=== PATIENT | female | born 1960 | race Caucasian/White ===

== ENCOUNTER → 2019-04-16 | Outpatient (REF) | payer BC | LOC: M SFHCCLAY 14:54 | PROVIDERS: ATTEND Family Medicine | DX: Z53.9 Procedure and treatment not carried out, unspecified reason (principal) ==

== ENCOUNTER → 2019-04-18 | Outpatient (CLI) | payer BC ==
--- NOTE | 2019-04-18 10:56 | REP ---
ULTRASOUND SOFT TISSUES NECK: Real-time sonographic evaluation of the soft tissues of the neck performed. In the right neck soft tissues a dominant elongated lymph node demonstrates a linear central echogenic fatty hilum. It measures 3.4 x 0.6 x 1.4 cm. There is an adjacent smaller lymph node 1.4 x 0.4 x 1.1 cm. A submandibular lymph node measures 8.0 x 4.0 x 9.0 mm. In the left neck soft tissues nonenlarged lymph nodes are seen measuring 1.6 x 0.4 x 1.0 cm and 7.0 x 5.0 x 6.0 mm. A submandibular lymph node is not significantly enlarged 1.0 x 0.5 x 0.9 cm. There is a 2 mm sebaceous cyst superficial to the right submandibular gland. IMPRESSION: Bilateral lymph nodes in the soft tissues of the neck as discussed in detail above. The largest lymph node is in the right neck soft tissues 3.4 x 0.6 x 1.4 cm. Short axis dimension is within normal range, but given its dimensions of 3.4 x 0.6 x 1.4 cm consideration should be made for either ultrasound guided biopsy or 6 month followup ultrasound. Electronically Signed by Luis Miguel Millard MD 04/21/2019 09:09 A
== END ==
LOC: M RAD 07:45
PROVIDERS: ATTEND Family Medicine
DX: R59.9 Enlarged lymph nodes, unspecified (principal)

== ENCOUNTER → 2019-07-09 | Outpatient (CLI) | payer BC ==
--- NOTE | 2019-07-09 14:52 | REPMRS ---
Patient History The patient states she had a clinical breast exam in 2019. Patient is postmenopausal and is nulliparous. Family history of unknown cancer in mother, breast cancer in maternal aunt. Priors are over 10 years ago, no longer available Digital Woman Screen Mammo: July 09, 2019 - Exam #: [id number] Bilateral CC and MLO view(s) were taken. Technologist: Deanna Santacruz, Technologist No prior studies available for comparison. FINDINGS: There are scattered fibroglandular densities. There is a spiculated 15 mm mass in the anterior third of the right breast inferior and lateral to the plane of the nipple which merits further evaluation. There is no other evidence of dominant mass, architectural distortion, or grouped microcalcification typical of malignancy. 3-D tomosynthesis shows no additional findings. Assessment: BI-RADS/ACR category 0 mammogram, Incomplete: Need additional imaging evaluation and/or prior mammograms for comparison. Recommendation Ultrasound and special view mammogram of the right breast. This patient's Lifetime Breast Cancer RIsk is estimated at 12.0 %. This mammogram was interpreted with the aid of an FDA-approved computer-aided dectection system. Electronically Signed By: Samuel Ma MD 07/09/19 [id number]
== END ==
LOC: M WHC 13:06
PROVIDERS: ATTEND Family Medicine
DX: Z12.39 Encounter for other screening for malignant neoplasm of breast (principal); R92.8 Other abnormal and inconclusive findings on diagnostic imaging of breast; N63.13 Unspecified lump in the right breast, lower outer quadrant; Z78.0 Asymptomatic menopausal state; Z80.3 Family history of malignant neoplasm of breast

== ENCOUNTER → 2019-07-18 | Outpatient (CLI) | payer BC ==
--- NOTE | 2019-07-18 15:03 | REP ---
Digital diagnostic unilateral right breast mammography with CAD and focused right breast sonography: History: Screening mammography July 09, 2019 was BIRADS category 0 because of a spiculated subareolar density. Diagnostic imaging was recommended. Mammographic findings: Magnified focal spot compression craniocaudal, mediolateral, and mediolateral oblique views confirm the presence of a spiculated subareolar 14 mm moderately dense nodule in the right breast at approximately 6 o'clock position. No other mammographic abnormality. Sonographic findings: Focused right breast sonography demonstrates a 11 x 6 x 8 mm irregularly shaped somewhat spiculated hypoechoic lesion 1 cm from the nipple at approximately the 8 o'clock position in the right breast. This felt to account for the mammographic opacity. It has a taller than wide configuration. No other sonographic finding. Impression: BIRADS category 5 highly suspicious right breast imaging. Ultrasound-guided needle biopsy recommended with marker clip placement and post clip placement mammography. Spiculated nodule right breast at 8 o'clock position by ultrasound. BIRADS 5: BI-RADS/ACR category 5 mammogram. Highly Suggestive of Malignancy - appropriate action should be taken. This mammogram was interpreted with the aid of an FDA-approved computer-aided detection system. The patient letter being requested is m# 4 This patient's estimated Tyrer-Cuzick lifetime risk assessment for the breast cancer is 12.0 %.
== END ==
LOC: M WHC 13:41
PROVIDERS: ATTEND Family Medicine
DX: Z12.31 Encounter for screening mammogram for malignant neoplasm of breast (principal)

== ENCOUNTER → 2019-07-25 | Outpatient (CLI) | payer BC | LOC: M PLALAB 13:38 | PROVIDERS: ATTEND Surgery | DX: Z13.79 Encounter for other screening for genetic and chromosomal anomalies (principal) ==

== ENCOUNTER → 2019-07-29 | Outpatient (CLI) | payer BC ==
[~2019-07-29] MED LIST: LIDOCAINE 1% MDV 20ML VIAL As Ordered ONE; SODIUM BICARBONATE 8.4% INJ 50MEQ 50 ML VIAL As Ordered ONE
[2019-07-29 11:06] VITALS: BP 140/79
--- NOTE | 2019-07-29 13:52 | REP ---
Sonographic guidance: History: Right breast mass. Findings: Sonographic guidance is provided to Dr. Winkler who performed ultrasound-guided needle biopsy procedure right breast. Electronically Signed by Mingo Ma MD 07/29/2019 06:00 P
--- NOTE | 2019-07-29 17:48 | ROOPDOC ---
[facility] Report Of Operation Report of Operation DATE OF PROCEDURE: 07/29/19 PREPROCEDURE DIAGNOSES: Right breast mass POSTPROCEDURE DIAGNOSES: Right breast mass PROCEDURE: Ultrasound-guided right breast mass biopsy with clip placement SURGEON: Sophie Alvarez HANGAR ATTENDANT: ANESTHESIA: Local ESTIMATED BLOOD LOSS: Approximately 1 mL. COMPLICATIONS: none REMARKS: Clip is seen in the mammographically detected mass DESCRIPTION OF PROCEDURE: Lidocaine 1% LOT [id number] Expiration 04/2022 Sodium Bicarbonate 8.4% LOT 03-018-EV Expiration 07/2020 Hydromark clip LOT [id number] Expiration 03/2022 Bx device: BARD [id number] x10 cm LOT HUDY [id number] Expiration 03/2022 Informed consent was obtained. The most common risk and possible complications including bleeding, hematoma, bruising, infection, injury to surrounding structures were explained to the patient and she expressed understanding. Patient was taken to the procedure room and placed on the bed in the supine p osition with the right upper extremity placed above the head. Appropriate time out was done stating patients name, date of , and the procedure to be performed. The right breast was prepped and draped in the usual fashion. The ultrasound was used to confirm the location of the lesion in the right breast at 8:00 in retroareolar region. Plain Lidocaine 1% and 8.4% sodium bicarbonate 10:1 mix was used to numb the skin, the biopsy site and tissues along the anticipated biopsy tract. Small skin incision was made with blade number 11. BARD Marquee 14G cannula with introducer ([id number]) was inserted through the incision and advanced under the ultrasound guidance to position immediately adjacent to the lesion. Next, the introducer was removed and BARD Marquee 14G biopsy device was places in the cannula. Pre-biopsy imaging, and post-biopsy imaging were captured. Five good core biopsies were taken at various levels of the lesion. Specimen was placed in formaldehyde, labeled with appropriate biopsy site and patients name, and sent to pathology for evaluation. Next, the biopsy device was withdrawn and a clip introducer was inserted into t he biopsy site via the cannula. The Hydromark clip was deployed under direct vision. Post-clip placement image was captured. Manual pressure over the biopsy cavity and tract was held after the clip introducer was withdrawn. No bleeding was noted upon removal of the pressure. Post-biopsy mammogram of the right breast was obtained and showed clip in expected position. Postprocedural dressing was placed. Patient tolerated procedure well. Discharge instructions were discussed with the patient and she expressed understanding. SOPHIE ALVAREZ DO Jul 29, 2019 17:48
--- NOTE | 2019-07-29 19:30 | REP ---
Digital diagnostic unilateral right breast mammography with CAD: Two views. History: Marker clip placement views. The patient status post ultrasound-guided needle biopsy procedure right breast. Findings: Comparison mammography is from July 18, 2019. Today's true mediolateral and CC views of the right breast demonstrate the needle biopsy marker clip within the spiculated density in the retroareolar region of the right breast in good position. Impression: Needle biopsy marker clip in good position. This mammogram was interpreted with the aid of an FDA-approved computer-aided detection system. Electronically Signed by Mingo Ma MD 07/30/2019 07:25 A
== END ==
LOC: M IRPRO 09:46
PROVIDERS: ATTEND Surgery
DX: R92.8 Other abnormal and inconclusive findings on diagnostic imaging of breast (principal); N63.10 Unspecified lump in the right breast, unspecified quadrant

== ENCOUNTER → 2019-08-01 | Outpatient (CLI) | payer BC ==
[~2019-08-01] MED LIST changes: -LIDOCAINE 1% MDV 20ML VIAL As Ordered ONE; +PROHANCE 279.3MG/ML 15ML VIAL (A9576) As Ordered ONE; +PROHANCE 279.3MG/ML 5ML VIAL (A9576) As Ordered ONE; -SODIUM BICARBONATE 8.4% INJ 50MEQ 50 ML VIAL As Ordered ONE
--- NOTE | 2019-08-01 19:16 | REP ---
Bilateral breast MRI study without and with IV gadolinium: History: Right breast malignancy. Comparison mammography July 09, 2019 showed a spiculated nodule in the right breast anterior third. The patient is status post ultrasound-guided breast biopsy July 29, 2019. Post biopsy marker clip views mammographically obtained July 29, 2019. Technique: Three Mireya MRI imaging was performed with a dedicated breast coil. Axial, coronal, and sagittal T1 and T2-weighted scans were obtained with and without fat saturation in the usual fashion. The study includes dynamically acquired post gadolinium enhanced imaging subtraction imaging. Maximal intensity projection and multiplanar re-formation imaging is included as well. The study was interpreted with the aid of [employer], an FDA approved computer-aided detection (CAD) software program, on a dedicated breast MRI work station. The gadolinium enhancement dose is 17 mL of intravenous ProHance. Findings: The recently placed HydroMark clip marker device is seen within the spiculated lesion in the anterior third of the right breast as noted on post biopsy mammographic views. There is some edematous change in the periareolar skin and in the stroma around the biopsy site on the right consistent with post biopsy edema. There is no evidence of axillary lymphadenopathy on either side. No significant breast cystic change is seen. Mild fibroglandular elements are present bilaterally. There is a mild pattern of background parenchymal enhancement. Fairly prominent veins are noted in both breasts. The spiculated enhancing lesion at the site of the biopsy-proven carcinoma demonstrates enhancement and washout kinetics. It measures 12 mm in greatest diameter. There is a second spiculated suspicious lesion in the right breast posteriorly. This is in the 8 o'clock position. It measures 11 mm in diameter and demonstrates brisk enhancement and washout kinetics. It is considered suspicious on breast MRI study. In retrospect in an area of overlapping vessels, there is a 13 mm spiculated density visible on post biopsy mammography from July 29, 2019 in this location. This is felt to correspond with the MR findings. No abnormalities noted in the left breast on pre or postcontrast images. Impression: 1. BIRADS category 6 known right breast malignancy. The biopsy-proven carcinoma is seen in the anterior third of the right breast inferior and lateral quadrant. 2. There is a second suspicious focus in the right breast posterior third inferolateral quadrant 11 mm in diameter. This is visible in retrospect on post clip marker mammography and may be sampled with stereotactic technique. Alternatively, a targeted second look ultrasound may be able to identify this lesion for histologic sampling if desired. Electronically Signed by Mingo Ma MD 08/01/2019 07:58 P
== END ==
LOC: M RAD 14:40
PROVIDERS: ATTEND Surgery
DX: R92.8 Other abnormal and inconclusive findings on diagnostic imaging of breast (principal); C50.511 Malignant neoplasm of lower-outer quadrant of right female breast
CPT/HCPCS: A9576; C8908

== ENCOUNTER → 2019-08-08 | Outpatient (CLI) | payer BC ==
[~2019-08-08] MED LIST changes: +ADDE30CA3 PO; +CLON0.5T2 PO; +CYMB60CA3 PO; +FOLI1TAB11 PO; +METH2.5T48 PO; +MOBI4TAB PO; +OMEP10CASR PO; -PROHANCE 279.3MG/ML 15ML VIAL (A9576) As Ordered ONE; -PROHANCE 279.3MG/ML 5ML VIAL (A9576) As Ordered ONE; +REST0.05 OP; +VITA200028 PO
--- NOTE | 2019-08-08 11:51 | REP ---
FOCUSED RIGHT BREAST SONOGRAPHY: HISTORY: Second suspicious abnormalities seen in the right breast on post biopsy MRI study August 01, 2019. The patient has a biopsy proven malignancy in the anterior aspect of the right breast and is status post ultrasound-guided needle biopsy for this. Comparison MRI study August 01, 2019. Comparison postbiopsy mammography July 29, 2019. Comparison sonography July 28 and July 18, 2019. MAMMOGRAPHIC FINDINGS: In the 8-o'clock position of the right breast, the irregular anechoic to hypoechoic mass lesion containing the needle biopsy marker clip is seen consistent with the known biopsy-proven malignancy. At approximately 9-o'clock position more posterolaterally in the right breast, there is also a irregular somewhat spiculated appearing shadowing hypoechoic breast lesion measuring 9 x 9 x 8 mm located 7.7 cm from the nipple. This is felt to correspond with the second target seen on breast MRI scanning and is suspicious sonographically. IMPRESSION: BIRADS category 6 known right breast malignancy. The second target identified on breast MRI scanning is seen sonographically at the 9-o'clock position of the right breast more laterally. Histologic sampling under ultrasound guidance is feasible and is recommended. Electronically Signed by Mingo Ma MD 08/08/2019 03:50 P
== END ==
LOC: M RAD 10:37
PROVIDERS: ATTEND Surgery
DX: C50.911 Malignant neoplasm of unspecified site of right female breast (principal); R92.8 Other abnormal and inconclusive findings on diagnostic imaging of breast

== ENCOUNTER → 2019-08-12 | Outpatient (CLI) | payer BC ==
[2019-08-12 14:30] VITALS: BP 134/84
--- NOTE | 2019-08-12 17:24 | REP ---
POST BIOPSY MAMMOGRAM RIGHT BREAST: Following ultrasound guided biopsy of a nodule at 9-o'clock posteriorly in the right breast, ML and CC views of the right breast are performed. A metallic clip is seen at the new biopsy site posteriorly at 9-o'clock. The previously biopsied retroareolar spiculated nodule is visualized once again with a metallic clip again seen within it.
--- NOTE | 2019-08-12 20:46 | ROOPDOC ---
[facility] Report Of Operation Report of Operation DATE OF PROCEDURE: 08/12/19 PREPROCEDURE DIAGNOSES: Right breast cancer and right breast mass POSTPROCEDURE DIAGNOSES: Right breast cancer in the right breast mass PROCEDURE: Ultrasound-guided right breast mass biopsy with clip placement.. SURGEON: Sophie Alvarez ENTRY LEVEL MANAGER: ANESTHESIA: Local. ESTIMATED BLOOD LOSS: Approximately 5 mL. COMPLICATIONS: None. REMARKS: Postbiopsy clip is visible on mammogram in appropriate location. DESCRIPTION OF PROCEDURE: Lidocaine 1% LOT [id number] Expiration 06/2020 Sodium Bicarbonate 8.4% LOT 03-432-[id number] Expiration 07/2020 Hydromark clip LOT [id number] Expiration 03/2022 shape 4 Bx device: BARD [id number] x10 cm LOT HUEN 1024 Expiration 04/2022 Informed consent was obtained. The most common risk and possible complications including bleeding, hematoma, bruising, infection, injury to surrounding structures were explained to the patient and she expressed understanding. Patient was taken to the procedure room and placed on the bed in the supine position with the right upper extremity placed above the head. Appropriate time out was done stating patients name, date of , and the procedure to be performed. The right breast was prepped and draped in the usual fashion. The ultrasound was used to confirm the location of the lesion in the right breast at 9:00 8 centimeters from the nipple. Plain Lidocaine 1% and 8.4% sodium bicarbonate 10:1 mix was used to numb the skin, the biopsy site and tissues along the anticipated biopsy tract. Small skin incision was made with blade number 11. BARD Marquee 14G cannula with introducer ([id number]) was inserted through the incision and advanced under the ultrasound guidance to position immediately adjacent to the lesion. Next, the introducer was removed and BARD Marquee 14G biopsy device was places in the cannula. Pre-biopsy imaging, and post-biopsy imaging were captured. Five good core biopsies were taken at various levels of the lesion. Specimen was placed in formaldehyde, labeled with appropriate biopsy site and patients name, and sent to pathology for evaluation. Next, the biopsy device was withdrawn and a clip introducer was inserted into the biopsy site via the cannula. The Hydromark clip was deployed under direct vision. Post-clip placement image was captured. Manual pressure over the biopsy cavity and tract was held after the clip introducer was withdrawn. No bleeding was noted upon removal of the pressure. Post-biopsy mammogram of the right breast was obtained and showed clip in expected position. Postprocedural dressing was placed. Patient tolerated procedure well. Discharge instructions were discussed with the patient and she expressed understanding. SOPHIE ALVAREZ DO Aug 12, 2019 20:46
--- NOTE | 2019-08-13 08:29 | REP ---
FOCUSED RIGHT BREAST SONOGRAPHY: HISTORY: Ultrasound-guided needle biopsy. FINDINGS: Sonographic guidance is provided to Dr. Winkler who performed ultrasound-guided right breast needle biopsy procedure and marker clip placement. Electronically Signed by Mingo Ma MD 08/13/2019 09:20 A
== END ==
LOC: M WHCPRO 12:36
PROVIDERS: ATTEND Surgery
DX: N63.12 Unspecified lump in the right breast, upper inner quadrant (principal)

== ENCOUNTER → 2019-08-19 | Outpatient (REF) | payer BC ==
[2019-08-19 15:58] LABS: HEMATOCRIT 40.9 % (36.0-47.0); HEMOGLOBIN 13.3 g/dl (12.0-15.5); MEAN CORPUSCULAR HEMOGLOBIN 30.6 pg (27.0-33.0); MEAN CORPUSCULAR HGB CONC 32.5 g/dl (32.0-36.5); PLATELET COUNT, AUTOMATED 283 10^3/uL (150-450); RED BLOOD COUNT 4.35 10^6/uL (4.00-5.40); WHITE BLOOD COUNT 6.3 10^3/uL (4.0-10.0)
[2019-08-19 16:02] LABS: BLOOD UREA NITROGEN 18 MG/DL (7-18); CALCIUM LEVEL 9.2 MG/DL (8.8-10.2); CARBON DIOXIDE LEVEL 31 MEQ/L (21-32); CHLORIDE LEVEL 107 MEQ/L (98-107); CREATININE FOR GFR 0.76 MG/DL (0.55-1.30); GLOMERULAR FILTRATION RATE > 60.0 (>45); GLUCOSE, FASTING 83 MG/DL (70-100); POTASSIUM SERUM 4.8 MEQ/L (3.5-5.1); SODIUM LEVEL 141 MEQ/L (136-145)
== END ==
LOC: M SFHCCLAY 10:40
PROVIDERS: ATTEND Family Medicine
DX: Z01.818 Encounter for other preprocedural examination (principal); C50.511 Malignant neoplasm of lower-outer quadrant of right female breast; M06.9 Rheumatoid arthritis, unspecified

== ENCOUNTER → 2019-08-19 | Outpatient (CLI) | payer BC ==
--- NOTE | 2019-08-19 11:49 | REP ---
Clinical: Preoperative assessment. History of breast cancer . Comparison: None . Technique: PA and lateral. Findings: The mediastinum and cardiac silhouette are normal. The lung olivera are clear and without acute consolidation, effusion, or pneumothorax. The skeletal structures demonstrate age-related changes. Impression: 1. No acute cardiopulmonary process. Electronically Signed by López Brown MD 08/19/2019 11:40 A
== END ==
LOC: M CLY 11:24
PROVIDERS: ATTEND Family Medicine
DX: Z01.818 Encounter for other preprocedural examination (principal); C50.511 Malignant neoplasm of lower-outer quadrant of right female breast

== ENCOUNTER 2019-08-26 06:57 | Inpatient (IN) | payer BC ==
[~2019-08-26] VITALS: Ht 205.7 cm; Wt 95.3 kg
[~2019-08-26 06:57] MED LIST changes: +HEPARIN SOD (PORCINE) 5000 UNITS/ML VIAL (J1644 PER 1000UNITS) SQ ONE; +NS 1,000 ML IV ONE; -REST0.05 OP; +REST0.05 OU; +VITAD1000T PO; +ceFAZolin SOD 2 GM in IV 1 EA IV ONE
[2019-08-26] MEDS ORDERED: LIDO2.5C15 (07:40)
[2019-08-26] MEDS ORDERED: LIDOCAINE 2% INJ 100 MG/5 ML SDV (FOR ANES.) As Ordered ONE ×3 (08:37→12:35)
[2019-08-26] MEDS ORDERED: ROCURONIUM BROMIDE 50 MG/5 ML VIAL As Ordered ONE (08:37)
[2019-08-26] MEDS ORDERED: propofoL 200 MG/20 ML VIAL As Ordered ONE ×2 (08:37→12:35)
[2019-08-26] MEDS ORDERED: MIDAZOLAM INJ 2 MG/2 ML VIAL (J2250) As Ordered ONE (08:38)
[2019-08-26] MEDS ORDERED: fentaNYL 100 MCG/2 ML INJECTION (J3010) As Ordered ONE ×2 (08:38→11:06)
[2019-08-26] MEDS ORDERED: dexameTHASONE 4 MG/ML 1ML VIAL (J1100) As Ordered ONE (08:39)
[2019-08-26] MEDS ORDERED: ONDANSETRON 4MG/2ML VIAL (J2405) As Ordered ONE (08:39)
[2019-08-26] MEDS ORDERED: BUPIVACAINE LIPOSOME/PF 1.3% 20ML VIAL (13.3MG/ML)(EXPAREL)(C9290 PER1MG) As Ordered ONE (09:19)
[2019-08-26] MEDS ORDERED: KETOROLAC 60 MG/2 ML VIAL (J1885) As Ordered ONE (11:10)
[2019-08-26] MEDS ORDERED: ACETAMINOPHEN 1000MG 100ML IV BTL (OFIRMEV) (J0131 PER 10MG) As Ordered ONE (11:11)
--- NOTE | 2019-08-26 11:53 | REP ---
Right Breast Lymphoscintigraphy The procedure was performed by JONATHAN Payne, under the direct supervision of Dr. Millard. The risks and benefits of the procedure were explained to the patient and informed consent was obtained both verbally and written. Directly prior to the start of the procedure, a formal timeout was completed in the procedure room. Using topical anesthetic and sterile technique 1.039 mCi of technetium 99m filtered sulfur colloid was injected subdermally in eight fractionated periareolar injections. Images obtained 1 hour after injection show 2 right axillary foci. Impression: 1. Two right axillary foci. Reviewed by JONATHAN Swartz 08/26/2019 10:37 A Electronically Signed by Luis Miguel Millard MD 08/26/2019 11:45 A
[2019-08-26] MEDS ORDERED: oxyCODONE 5MG TAB PO PRN (12:45)
[2019-08-26] MEDS ORDERED: ONDANSETRON 4MG/2ML VIAL (J2405) IV PRN ×2 (12:45→13:30)
[2019-08-26] MEDS ORDERED: fentaNYL 100 MCG/2 ML INJECTION (J3010) IV PRN (12:45)
[2019-08-26] MEDS ORDERED: HYDROMORPHONE HCL 0.5 MG/ 0.5 ML SYRINGE (J1170 PER 1) IV PRN (12:45)
[2019-08-26] MEDS ORDERED: LR 1,000 ML IV SCH (12:45)
[2019-08-26] MEDS ORDERED: MAALOX 30 ML SUSP *UDC PO PRN (13:15)
[2019-08-26] MEDS ORDERED: ACETAMINOPHEN TAB 650MG DOSE (2X325MG) PO PRN (13:15)
[2019-08-26] MEDS ORDERED: MOM 30ML SUSPENSION UDC PO PRN (13:15)
[2019-08-26] MEDS ORDERED: MORPHINE 4 MG/ML 1ML VIAL/SYRINGE (J2270) IV PRN (13:15)
[2019-08-26] MEDS: NS 1,000 ML IV SCH ×2 (13:30→19:50)
--- NOTE | 2019-08-26 13:46 | HPEPDOC ---
General Date of Admission Date of Service: Aug 26, 2019 Primary Care Physician: JOSE PETTIT DO Attending Physician: SOPHIE ALVAREZ DO Chief Complaint The patient is a 59-year-old female admitted with a reason for visit of Multifocal Right Breast Cancer. Source: Patient Exam Limitations: No limitations Timing/Duration: Other (not applicable) Severity: Other (not applicable) Associated Symptoms: Other (not applicable) History of Present Illness This is a 59 years old female with past medical history of rheumatoid arthritis, anxiety disorder, dry eye syndrome, Sjogren syndrome, polycystic ovarian syndrome. 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 Alvarez and had a mastectomy done with a placement of a drain on right side and we were asked to admit patient for continued inpatient care till patient is discharged home. On examination, she has comfortable in no distress. Only complaining of a pain at the surgical site, no shortness of breath, no chest pain, no nausea, vomiting, etc. Home Medications Scheduled Cholecalciferol (Vitamin D3) (Vitamin D3) 1,000 Unit Tablet, 1,000 UNITS PO DAILY, (Reported) Cyclosporine (Restasis) 0.05% Droperette, 1 DROP OU BID, (Reported) Dextroamphetamine/Amphetamine (Adderall Xr 30 mg Capsule) 30 Mg Cap.er.24h, 1 CAP PO BIDP, (Reported) Duloxetine Hcl (Cymbalta) 60 Mg Capsule.dr, 60 MG PO DAILY, (Reported) Folic Acid (Folic Acid) 1 Mg Tablet, 1 TAB PO DAILY, (Reported) Meloxicam (Mobic) 7.5 Mg Tablet, 1 TAB PO DAILY, (Reported) Methotrexate Sodium (Methotrexate) 2.5 Mg Tablet, 6 TAB PO Q7D, (Reported) Omeprazole (Omeprazole) 10 Mg Capsule.dr, 20 MG PO QHS, (Reported) Scheduled PRN Clonazepam (Clonazepam) 0.5 Mg Tablet, 0.5 MG PO TIDP PRN for anxiety, (Reported) Miscellaneous Medications Lidocaine/Prilocaine (Lidocaine-Prilocaine Cream) 2.5%/2.5% Cream..g., (Reported) Allergies Coded Allergies: No Known Allergies (Unverified , 08/25/19) Past Medical History Medical History Rheumatoid arthritis, anxiety, dry, some Sjogren syndrome, polycystic ovarian disease syndrome Surgical History . Total ankle replacement, cholecystectomy, ovarian wedge resection, right breast biopsy Family History Mother had immune, hepatitis. Bladder cancer and brother had hypertension. Father also had hypertension Social History * Smoker: former Smoker Alcohol: Denies Drugs: denies A-FIB/CHADSVASC A-FIB History Current/History of A-Fib/PAF?: No Review of Systems Constitutional: Denies: Chills, Fever, Malaise, Night Sweats, Weakness, Fatigue, Weight Loss, Lethargy, Other Eyes: Denies: Pain, Vision change, Conjunctivae inflammation, Eyelid inflamm ation, Redness, Other ENT: Denies: Head Aches, Ear Pain, Dysphagia, Sinus Congestion, Post Nasal Drip, Sore Throat, Epistaxis, Other Symptoms Skin: Denies: Rash, Lesions, Jaundice, Bruising, Itching, Dry, Breakdown, Nail Changes, Other Pulmonary: Denies: Dyspnea, Cough, Pleuritic Chest Pain, Other Symptoms Cardiovascular: Denies: Chest Pain, Palpitations, Orthopnea, Paroxysmal Noc. Dyspnea, Edema, Lt Headedness, Other Symptoms Gastrointestinal: Denies: Nausea, Vomiting, Abdominal Pain, Diarrhea, Constipation, Melena, Hematochezia, Other Symptoms Genitourinary: Denies: Dysuria, Frequency, Incontinence, Hematuria, Retention, Other Symptoms Hematologic: Denies: Bruising, Bleeding Excessively, Petecchia, Purpura, Enlarged Lymph Nodes, Other Hematologic Endocrine: Denies: Polydipsia, Polyphagia, Polyuria, Heat Intolerance, Cold Intolerance, Other Endocrine Sx Musculoskeletal: Reports: Other Symptoms (The surgical site) Neurological: Denies: Weakness, Numbness, Incoordination, Change in speech, Confusion, Seizures, Other Symptoms Psych: Denies: Mood Normal, Anxiety, Depression, Memory Issues, Thoughts of Self Harm, Anger, Thoughts of Harming Other, Other Psych Physical Examination General Exam: Positive: Alert, Cooperative Eye Exam: Positive: PERRLA, Conjunctiva & lids normal ENT Exam: Positive: Atraumatic, Mucous membr. moist/pink Neck Exam: Positive: Supple Chest Exam: Positive: Clear to auscultation Heart Exam: Positive: Rate Normal, Normal S1, Normal S2 Abdomen Exam: Positive: Normal bowel sounds, Soft Extremity Exam: Positive: Normal pulses Skin Exam: Positive: Other skin issue (dressing on the rise. Right breast with a drain in place) Neuro Exam: Positive: Strength at 5/5 X4 ext, Cranial Nerves 3-12 NL Psych Exam: Positive: Mood NL, Oriented x 3 Vital Signs Vital Signs Date Time Temp Pulse Resp B/P (MAP) Pulse Ox O2 Delivery O2 Flow Rate FiO2 08/26/19 13:11 16 08/26/19 13:00 97.5 84 117/61 (79) 95 Room Air 08/26/19 12:45 5 Problems (1) Status post mastectomy Status: Acute Problem Text: 59 years old female with past medical history of ductal carcinoma, grade 2 right breast status post mastectomy by Dr. Alvarez today Admit patient to MedSurg floor Normal saline 800 mL per hour Cefazolin 2 g IV every 8 hours 2 more doses Pain management with morphine sulfate and oxycodone as per orders DVT prophylaxis with heparin Activity as tolerated Diet to regular Further recommendations as per plastic surgery Continue home meds (2) PCOS (polycystic ovarian syndrome) Status: Chronic Problem Text: Continue home meds (3) Sjogrens syndrome Status: Chronic Problem Text: Continue home meds (4) Rheumatoid arthritis Status: Chronic Problem Text: Continue home meds Plan / VTE VTE Prophylaxis Ordered?: Yes NORBERTO QUINTANILLA MD Aug 26, 2019 13:46
[2019-08-26 14:00] VITALS: BP 130/81
[2019-08-26 14:26] VITALS: BP 127/81
[2019-08-26 15:30] VITALS: BP 126/80
[2019-08-26 16:30] VITALS: BP 105/65
[2019-08-26 17:30] VITALS: BP 117/71
[2019-08-26] MEDS: ceFAZolin SOD 2 GM in IV 1 EA IV SCH (17:56)
[2019-08-26] MEDS: oxyCODONE 5MG TAB PO PRN (17:57)
[2019-08-26] MEDS ORDERED: clonazePAM 0.5 MG TAB PO PRN (18:15)
[2019-08-26] MEDS: HEPARIN SOD (PORCINE) 5000 UNITS/ML VIAL (J1644 PER 1000UNITS) SC SCH (19:48)
[2019-08-26] MEDS: DOCUSATE SODIUM 100 MG CAP PO SCH (19:48)
--- NOTE | 2019-08-26 21:01 | ROOPDOC ---
[facility] Report Of Operation Report of Operation DATE OF PROCEDURE: 08/26/19 PREPROCEDURE DIAGNOSES: Right multifocal breast cancer POSTPROCEDURE DIAGNOSES: Right multifocal breast cancer PROCEDURE: Right breast simple mastectomy without reconstruction and right sentinel lymph node biopsy. SURGEON: Jessica Winkler [employer] NURSE: Mary Harden ANESTHESIA: Anesthesia was general. ESTIMATED BLOOD LOSS: Approximately 25 mL. COMPLICATIONS: None REMARKS: 3 sentinel lymph nodes identified DESCRIPTION OF PROCEDURE: INDICATIONS: Ms. Porras is a 59 year old lady who was found to have right breast mass on her mammogram. Biopsy of right breast lesion was done and showed invasive ductal carcinoma, hormone positive, Her2 negative.. She had MRI of the breast was done and found second right breast mass which was also proven to be cancer but this time papillary carcinoma. We discussed surgical options and patient opted for simple mastectomy without reconstruction. I explained to the patient that because she has invasive breast cancer we also need to evaluate her lymph nodes with right breast sentinel lymph node biopsy. Risks and possible complications of surgical procedure including bleeding, infection and injury to surrounding structures were explained to the patient and she wished to proceed. Consent was signed. Subcutaneous heparin 5000 units was given to patient in the preop area. Lymphoscintigraphy was reviewed preoperatively and the tracer was found in the right axilla. DETAILS: Patient was taken to the operating room and placed supine on the operating room table. A sign in was called stating patients name, date of and the procedure to be done. Preoperative antibiotics were infused. Smooth induction of general anesthesia was done. Patients hands were extended on arm rests. Care was taken not to over extend patients arms. Weaver catheter was placed. Patients right breast and axilla were prepped and draped in the usual fashion. Neoprobe was used to rodrigue the site of maximal signal in the axilla. The right breasts tumor sites were marked on the skin using ultrasound guidance. Both biopsy clips were noted. Appropriate time out was done and patients name, date of , and the procedure to be done were confirmed. Procedure was started with right mastectomy. Thetransverse elliptical incision incorporating skin and nipple areolar complex was made with scalpel number 15. Subcutaneous flaps were developed using electrocautery dissection. Dissection was carried from inframammary fold to medial aspect of sternum, inferior aspect of clavicle and the axilla. Doctor Mills assistance was critical in allowing fast progression of the case and decreasing anesthesia time. Breast tissue was dissected from the muscle posteriorly and pectoralis fascia was taken with the specimen. The dissection was carried all the way to the [place] making sure that axilla is not entered prematurely. Breast specimen was marked for orientation with short stitch marking superior edge of mastectomy and long stitch marking latera edge of mastectomy. The specimen was weighted and weight of 831 grams was reported. The specimen was then placed in formaldehyde, and passed to pathology. Right mastectomy cavity was irrigated and hemostasis was achieved. Doctor Gene assistance was critical in achieving adequate hemostasis and progressing the case safely. Next, our attention was turned toward the axilla which was accessed from the mastectomy site. Clavipectoral fascia was opened over the site of maximum Neoprobe signal. Area of high signal was identified at the lateral border of the pectoralis major muscle. [place] lymph node #1 was identified and 10 second ex-vivo count [id number]. Second sentinel lymph node was identified and the 10 second ex-vivo count was [id number]. Third sentinel lymph node was identified and the 10 second ex-vivo [place] [id number]. Specimens were labeled appropriately and sent to pathology. Axilla was explored for presence of any additional lymph nodes and none were identified. 10 second count of the background was 36. Doctor Mills assistance with identification of sentinel lymph nodes was again critical to avoid injury to surrounding nerves. The axilla was irrigated and hemostasis was achieved. Next, clavipectoral fascia was closed with interrupted 3-0 Vicryl Stitches. At this point, 19 Amharic Antoine drain was placed into the mastectomy cavity through a separate stab incision and secured at the skin with stitches. Next, pectoral and serratus plane blocks on the right side were also done with Exparel by Dr. Harden. Deep dermal sutures were placed with 2-0 Vicryl to approximate mastectomy site edges. Dermis was closed with 3-0 Vicryl. Skin was closed with 4-0 Monocryl. Surgical glue was applied to the top of the incision. Surgical gauze was placed over the incision and the chest was wrapped with ANTOINE wrap. Final instruments and sponge count were correct. Patient emerged from general anesthesia without any problems. Patient tolerated procedure well and was taken to recovery unit in stable condition. JESSICA WINKLER DO Aug 26, 2019 21:01
[2019-08-26 22:00] VITALS: BP 104/65
[2019-08-27] MEDS: oxyCODONE 5MG TAB PO PRN ×3 (00:07→10:01)
[2019-08-27 02:00] VITALS: BP 110/86
[2019-08-27] MEDS: ceFAZolin SOD 2 GM in IV 1 EA IV SCH (03:05)
[2019-08-27 05:35] LABS: HEMOGLOBIN 11.4 g/dl (12.0-15.5); MEAN CORPUSCULAR HEMOGLOBIN 30.5 pg (27.0-33.0); MEAN CORPUSCULAR HGB CONC 32.6 g/dl (32.0-36.5); MEAN CORPUSCULAR VOLUME 93.6 fl (80.0-96.0); PLATELET COUNT, AUTOMATED 242 10^3/uL (150-450); RED BLOOD COUNT 3.74 10^6/uL (4.00-5.40); WHITE BLOOD COUNT 9.1 10^3/uL (4.0-10.0)
[2019-08-27 05:59] LABS: ALBUMIN 2.9 GM/DL (3.2-5.2); ALT/SGPT 30 U/L (12-78); BILIRUBIN,TOTAL 0.3 MG/DL (0.2-1.0); BLOOD UREA NITROGEN 11 MG/DL (7-18); CALCIUM LEVEL 8.4 MG/DL (8.8-10.2); CARBON DIOXIDE LEVEL 29 MEQ/L (21-32); CHLORIDE LEVEL 108 MEQ/L (98-107); CREATININE FOR GFR 0.78 MG/DL (0.55-1.30); GLOMERULAR FILTRATION RATE > 60.0 (>45); GLUCOSE, FASTING 89 MG/DL (70-100); MAGNESIUM LEVEL 2.2 MG/DL (1.8-2.4); POTASSIUM SERUM 3.7 MEQ/L (3.5-5.1); SODIUM LEVEL 142 MEQ/L (136-145); TOTAL PROTEIN 6.2 GM/DL (6.4-8.2)
[2019-08-27 06:00] VITALS: BP 119/81
[2019-08-27] MEDS ORDERED: ULTR50TA8 PO (06:59)
--- NOTE | 2019-08-27 08:09 | IPNPDOC ---
Subjective General Date Seen: Aug 27, 2019 (patient was seen with Dr Harden) Subject Chief Complaint/History The patient is a 59-year-old female admitted with a reason for visit of Multifocal Right Breast Cancer. She had right breast simple mastectomy and right sentinel lymph node biopsy done yesterday. She was admitted for recovery as 23 hour. She is doing well after surgery. She is tolerating food. She was able to void. She is using incentive spirometer. She is able to ambulate. Her pain is well-controlled. Patient was seen together with Dr. Harden. Current Medications Current Medications Current Medications Medications (Trade) Dose Ordered Sig/Kiesha Route PRN Reason Start Time Stop Time Status Last Admin Dose Admin Acetaminophen (Tylenol Tab) 650 mg Q4H PRN PO PAIN OR FEVER 08/26/19 13:15 Al Hydrox/Mg Hydrox/Simethicone (Mylanta) 30 ml DAILY PRN PO DYSPEPSIA 08/26/19 13:15 08/27/19 00:06 Cefazolin Sodium/ Dextrose 2 gm/IV Miscellaneous Supplies 50 ml @ 75 mls/hr Q8H IV 08/26/19 19:00 08/27/19 03:39 DC 08/27/19 03:05 Clonazepam (KlonoPIN) 0.5 mg TIDP PRN PO anxiety 08/26/19 18:15 Docusate Sodium (Colace) 100 mg BID PO 08/26/19 21:00 08/26/19 19:48 Duloxetine HCl (Cymbalta) 60 mg DAILY PO 08/27/19 09:00 Fentanyl Citrate (Sublimaze) 25 mcg Q5MP PRN IV PAIN LEVEL 5-10 08/26/19 12:45 08/26/19 13:45 DC Folic Acid (Folic Acid) 1 mg DAILY PO 08/27/19 09:00 Heparin Sodium (Porcine) (Heparin) 5,000 units Q12H SC 08/26/19 21:00 08/26/19 19:48 Hydromorphone HCl (Dilaudid) 0.2 mg Q5MP PRN IV PAIN LEVEL 4-7 08/26/19 12:45 08/26/19 13:45 DC Lactated Ringer's 1,000 ml @ 100 mls/hr Q10H IV 08/26/19 12:45 08/26/19 13:45 DC Magnesium Hydroxide (Milk Of Magnesia) 30 ml DAILY PRN PO CONSTIPATION 08/26/19 13:15 Morphine Sulfate (Morphine Sulfate Inj) 4 mg Q4HP PRN IV SEVERE PAIN (PS 8-10) 08/26/19 13:15 Ondansetron HCl (ZOFRAN INJection) 4 mg Q4HP PRN IV NAUSEA OR VOMITING 08/26/19 12:45 08/26/19 13:45 DC Ondansetron HCl (ZOFRAN INJection) 4 mg Q4HP PRN IV NAUSEA OR VOMITING 08/26/19 13:30 Oxycodone HCl (Roxicodone, Oxyir) 5 mg ASDIRECTED PRN PO PAIN LEVEL 1-4 08/26/19 12:45 08/26/19 13:45 DC 08/26/19 13:11 Oxycodone HCl (Roxicodone, Oxyir) 10 mg Q4HP PRN PO PAIN LEVEL 4-7 08/26/19 13:15 08/27/19 05:52 Sodium Chloride 1,000 ml @ 100 mls/hr Q10H IV 08/26/19 13:30 08/26/19 19:50 Vitamin D (Vitamin D) 1,000 units DAILY PO 08/27/19 09:00 Allergies Coded Allergies: No Known Allergies (Unverified , 08/25/19) Objective Physical Examination Examination GENERAL APPEARANCE: Patient is doing well. There is no distress. She is alert and oriented.. SKIN: Skin is warm. There are mild ecchymosis across her right chest. BREAST: Right mastectomy flap is viable. There is mild ecchymosis. There is no drainage from the incision site. Incision is well approximated. Thony wrap was replaced after examination. There is CARINE drain in place with small amount of serous sanguinous fluid. 130 cc in 24 h LUNGS: Patient is breathing comfortably on room air. HEART: There is no tachycardia. ABDOMEN: Abdomen soft. EXTREMITIES: Patient is spontaneously moving all 4 extremities. There is no edema. Vital Signs Vital Signs Date Time Temp Pulse Resp B/P (MAP) Pulse Ox O2 Delivery O2 Flow Rate FiO2 08/27/19 06:22 76 15 93 Room Air 08/27/19 06:00 97.8 119/81 (94) 08/26/19 12:45 5 I&Os I&O- Last 24 Hours up to 6 AM 4/1/20 06:00 Intake Total 5630 ml Output Total 1260 ml Balance 4370 ml Laboratory Data Labs 24H Laboratory Tests 2 08/27/19 05:19: Nucleated Red Blood Cells % (auto) 0.0, Anion Gap 5L, Glomerular Filtration Rate > 60.0, Calcium Level 8.4L, Magnesium Level 2.2, Total Bilirubin 0.3, Aspartate Amino Transf (AST/SGOT) 20, Alanine Aminotransferase (ALT/SGPT) 30, Alkaline Phosphatase 109, Total Protein 6.2L, Albumin 2.9L, Albumin/Globulin Ratio 0.88L CBC/BMP Laboratory Tests 08/27/19 05:19 Impression 59-year-old lady with multifocal right breast cancer, status post right simple mastectomy and right sentinel lymph node biopsy done on 08/26/2019. - Stable for discharge from surgical point - Discharge instructions already placed in the chart from surgical point of view - Patient does not need to continue antibiotics at discharge - Ultram prescription was already sensed to patient's pharmacy patient was encouraged to take it only if she needs to otherwise Tylenol was encouraged - Patient was instructed to remain in Thony wrap anterior she sees me in the office on August 31 - Drain teaching per nursing staff. Patient was instructed to record 24 hours totals - Case was discussed with nursing staff - I greatly appreciate medicine team input in management of this patient Plan / VTE VTE Prophylaxis Ordered?: Yes VTE Exclusion Pharmacological: Bleeding Risk SOPHIE ALVAREZ DO Aug 27, 2019 07:11
[2019-08-27] MEDS: HEPARIN SOD (PORCINE) 5000 UNITS/ML VIAL (J1644 PER 1000UNITS) SC SCH (08:27)
[2019-08-27] MEDS: DOCUSATE SODIUM 100 MG CAP PO SCH (08:29)
[2019-08-27] MEDS ORDERED: DULoxetine 30 MG CAP (CYMBALTA) PO SCH (09:00)
[2019-08-27] MEDS ORDERED: FOLIC ACID 1 MG TAB PO SCH (09:00)
[2019-08-27] MEDS ORDERED: VITAMIN D 1,000 INTERNATIONAL UNITS TABLET PO SCH (09:00)
--- NOTE | 2019-08-27 11:16 | DS.PDOC ---
Discharge Summary General Date of Admission Date of Discharge 08/27/19 Discharge Summary PROCEDURES PERFORMED DURING STAY: None. ADMITTING DIAGNOSES: 1. Multifocal right breast cancer status post right breast cystectomy. DISCHARGE DIAGNOSES: 1. Multifocal right breast cancer status post right mastectomy, rheumatoid arthritis, Sjogren syndrome. COMPLICATIONS/CHIEF COMPLAINT: Multifocal Right Breast Cancer. HISTORY OF PRESENT ILLNESS: This is a 59 years old female with past medical history of rheumatoid arthritis, anxiety disorder, dry eye syndrome, Sjogren syndrome, polycystic ovarian syndrome. 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 Winkler and had a mastectomy done with a placement of a drain on right side and we were asked to admit patient for continued inpatient care till patient is discharged home. On examination, she has comfortable in no distress. Only complaining of a pain at the surgical site, no shortness of breath, no chest pain, no nausea, vomiting, etc. HOSPITAL COURSE: 59 years old female with past medical history of ductal carcinoma, grade 2 right breast status post mastectomy by Dr. Winkler yesterday Patient was admitted to [facility] floor for further observation and medical consult was called for medical management Initially patient was started on normal saline 100 mL per hour and she also received 2 doses of cefazolin 2 g IV every 8 hours Pain management was started with morphine sulfate and oxycodone as per orders and which she responded very well to abort treatment. Patient's home medications were continued as well Patient was seen by plastic surgery today and has been cleared for discharge home. She'll be discharged home on all current medications. General follow with Dr. Winkler are as an outpatient as per scheduled appointment DISCHARGE MEDICATIONS: Please see below. ALLERGIES: Please see below. PHYSICAL EXAMINATION ON DISCHARGE: VITAL SIGNS: Please see below. GENERAL: Within normal limits HEENT: PERRLA. Extraocular muscles muscles intact NECK: Supple CARDIOVASCULAR EXAMINATION: S1, S2, regular RESPIRATORY EXAMINATION: Clear to A&P ABDOMINAL EXAMINATION: , Soft, nontender. Once the present. Organomegaly EXTREMITIES: No clubbing, cyanosis, edema SKIN: Normal, dressing in right breast with drain NEUROLOGICAL EXAMINATION: . No focal motor sensory deficit PSYCHIATRIC EXAMINATION: Normal LABORATORY DATA: Please see below. IMAGING: Right breast. Lymph scintigraphic:Impression: 1. Two right axillary foci. PROGNOSIS: Good ACTIVITY: As tolerated. DIET: As tolerated DISCHARGE PLAN: As per plastic surgery DISPOSITION: . Home DISCHARGE INSTRUCTIONS: 1. Follow with Dr. Winkler, as an outpatient. ITEMS TO FOLLOWUP ON ON OUTPATIENT: 1. Follow with plastic surgery as an outpatient. DISCHARGE CONDITION: Stable. TIME SPENT ON DISCHARGE:32 minutes. Vital Signs/I&Os Vital Signs Date Time Temp Pulse Resp B/P (MAP) Pulse Ox O2 Delivery O2 Flow Rate FiO2 08/27/19 10:01 18 08/27/19 06:22 76 93 Room Air 08/27/19 06:00 97.8 119/81 (94) 08/26/19 12:45 5 I&O- Last 24 Hours up to 6 AM 08/27/19 06:00 Intake Total 5630 ml Output Total 1260 ml Balance 4370 ml Laboratory Data Labs 24H Laboratory Tests 2 08/27/19 05:19: Nucleated Red Blood Cells % (auto) 0.0, Anion Gap 5L, Glomerular Filtration Rate > 60.0, Calcium Level 8.4L, Magnesium Level 2.2, Total Bilirubin 0.3, Aspartate Amino Transf (AST/SGOT) 20, Alanine Aminotransferase (ALT/SGPT) 30, Alkaline Phosphatase 109, Total Protein 6.2L, Albumin 2.9L, Albumin/Globulin Ratio 0.88L CBC/BMP Laboratory Tests 08/27/19 05:19 Discharge Medications Scheduled Cholecalciferol (Vitamin D3) (Vitamin D3) 1,000 Unit Tablet, 1,000 UNITS PO DAILY, (Reported) Cyclosporine (Restasis) 0.05% Droperette, 1 DROP OU BID, (Reported) Dextroamphetamine/Amphetamine (Adderall Xr 30 mg Capsule) 30 Mg Cap.er.24h, 1 CAP PO BIDP, (Reported) Duloxetine Hcl (Cymbalta) 60 Mg Capsule.dr, 60 MG PO DAILY, (Reported) Folic Acid (Folic Acid) 1 Mg Tablet, 1 TAB PO DAILY, (Reported) Meloxicam (Mobic) 7.5 Mg Tablet, 1 TAB PO DAILY, (Reported) Methotrexate Sodium (Methotrexate) 2.5 Mg Tablet, 6 TAB PO Q7D, (Reported) Omeprazole (Omeprazole) 10 Mg Capsule.dr, 20 MG PO QHS, (Reported) Scheduled PRN Clonazepam (Clonazepam) 0.5 Mg Tablet, 0.5 MG PO TIDP PRN for anxiety, (Reported) Tramadol HCl (Ultram) 50 Mg Tablet, 50 MG PO Q6HP PRN for pain Miscellaneous Medications Lidocaine/Prilocaine (Lidocaine-Prilocaine Cream) 2.5%/2.5% Cream..g., (Reported) Allergies Coded Allergies: No Known Allergies (Unverified , 08/25/19) NORBERTO QUINTANILLA MD Aug 27, 2019 11:16
== END 2019-08-27 10:45 | disposition home or self-care (01) | DRG 362 ==
LOC: M SDC 06:57 → M MS5PR 06:57 → EDSTATUS 10:00 → M MS5PR 14:07 → M SDC 14:07 → M MS5PR 08-27 10:45 → M SDC 08-27 10:45
PROVIDERS: ADMIT Internal Medicine; ATTEND Internal Medicine
PROC: 07B50ZX Excision of Right Axillary Lymphatic, Open Approach, Diagnostic (ICD-10-PCS; 2019-08-26)
PROC: 0HTT0ZZ Resection of Right Breast, Open Approach (ICD-10-PCS; principal; 2019-08-26 10:00)
DX: C50.911 Malignant neoplasm of unspecified site of right female breast (principal); M35.00 Sjogren syndrome, unspecified; I10 Essential (primary) hypertension; M06.9 Rheumatoid arthritis, unspecified; F41.9 Anxiety disorder, unspecified; E28.2 Polycystic ovarian syndrome; Z79.899 Other long term (current) drug therapy; Z87.891 Personal history of nicotine dependence; Z92.21 Personal history of antineoplastic chemotherapy; Z96.669 Presence of unspecified artificial ankle joint

== ENCOUNTER → 2020-07-12 | Outpatient (CLI) | payer BC ==
[~2020-07-12] MED LIST changes: +D31000TA2 PO; -HEPARIN SOD (PORCINE) 5000 UNITS/ML VIAL (J1644 PER 1000UNITS) SQ ONE; +LETR2.5T2 PO; +LIDO2.5C15; -NS 1,000 ML IV ONE; +ULTR50TA8 PO; -VITAD1000T PO; -ceFAZolin SOD 2 GM in IV 1 EA IV ONE
--- NOTE | 2020-07-12 12:03 | REPMRS ---
Patient History The patient states she had a clinical breast exam in March 2020. Family history of unknown cancer in mother, breast cancer in maternal aunt. Malignant US guided breast biopsy. of the right breast, August 12, 2019. Malignant US guided breast biopsy of the right breast, July 29, 2019. Diagnostic Unilateral Mammo: Left Breast - July 12, 2020 - Exam #: [id number] CC and MLO view(s) were taken of the left breast. Technologist: Lo Isaac Technologist Prior study comparison: July 09, 2019, bilateral digital woman screen mammo performed at [facility]. FINDINGS: There are scattered fibroglandular densities. There has been no change in the appearance of the left breast parenchyma in the interval since the prior examination. No mass, architectural distortion, or microcalcific grouping has developed. No suspicious finding. 3-D tomosynthesis shows no additional findings. Assessment: BI-RADS/ACR category 2 mammogram. Benign Findings. Recommendation Routine screening mammogram of the left breast in 1 year. This mammogram was interpreted with the aid of an FDA-approved computer-aided dectection system. Electronically Signed By: Samuel Ma MD 07/12/20 1852
== END ==
LOC: M WHC 11:00
PROVIDERS: ATTEND Surgery
DX: C50.911 Malignant neoplasm of unspecified site of right female breast (principal); D05.11 Intraductal carcinoma in situ of right breast; Z80.3 Family history of malignant neoplasm of breast

== ENCOUNTER → 2020-08-10 | Outpatient (CLI) | payer BC ==
--- NOTE | 2020-08-10 17:04 | REP ---
INDICATION: SWOLLEN LYMPH NODES. COMPARISON: 04/18/2019. TECHNIQUE: Multiple ultrasound or ultrasonographic images of the neck bilaterally for lymph node evaluation. FINDINGS: Right side of neck: There are multiple lymph nodes as follows: 1.3 x 1.0 x 0.5 cm, upper normal size. 10.8 x 0.7 x 0.4 cm, normal size. 3.1 x 1.6 x 0.7 cm, slightly enlarged. Left-side of neck: There are multiple lymph nodes as follows: 11.6 x 0.9 x 0.5 cm, normal size. 10.7 x 0.7 x 0.5 cm, normal size. 1.5 x 1.0 x 0.7 cm, slightly enlarged. IMPRESSION: There is a slightly enlarged node in the neck on the right and on the left. There are other normal size nodes in the neck bilaterally. <Electronically signed by Luis Miguel Arizmendi > 08/10/20 [id number]
== END ==
LOC: M RAD 09:22
PROVIDERS: ATTEND Family Medicine
DX: R59.9 Enlarged lymph nodes, unspecified (principal)

== ENCOUNTER → 2020-08-31 | Outpatient (CLI) | payer BC, MEDICARE ==
--- NOTE | 2020-08-31 10:16 | REP ---
INDICATION: RT AXILLARY LYMPH NODE,SLIGHTLY ENLARGED,HX RT BREAST CA COMPARISON: None TECHNIQUE: Realtime grayscale ultrasound examination using linear high-frequency transducer. FINDINGS: Ultrasound examination of the right axillary region demonstrates approximately 6 prominent lymph nodes measuring up to 19 x 20 x 6 mm and 18 x 12 x 6 mm. No abnormal fluid collection or mass lesion identified. IMPRESSION: Few prominent but relatively normal appearing axillary lymph nodes by ultrasound evaluation. <Electronically signed by López Brown > 08/31/20 [id number]
== END ==
LOC: M WHC 09:28
PROVIDERS: ATTEND Surgery
DX: C50.911 Malignant neoplasm of unspecified site of right female breast (principal)

== ENCOUNTER → 2021-02-25 | Outpatient (CLI) | payer BC, MEDICARE ==
[~2021-02-25] MED LIST changes: +LIDO1CRE42; -LIDO2.5C15
--- NOTE | 2021-02-25 13:29 | REP ---
INDICATION: ENLARGED LYMPHNODE RIGHT AXILLA S/P COVID VAX. COMPARISON: 08/31/2020 TECHNIQUE: Real-time sonographic evaluation of the right axilla reassess lymph nodes FINDINGS: Once again, there are multiple lymph nodes. These are unchanged in size, shape, and echogenicity. Once again, the largest measures 2 cm in its greatest dimension. IMPRESSION: No significant change compared to the prior exam. <Electronically signed by Shaun James > 02/25/21 [id number]
== END ==
LOC: M WHC 12:39
PROVIDERS: ATTEND Surgery
DX: R59.9 Enlarged lymph nodes, unspecified (principal)

== ENCOUNTER → 2021-07-15 | Outpatient (CLI) | payer BC ==
[~2021-07-15] MED LIST changes: -CYMB60CA3 PO; +CYMB60CA4 PO
== END ==
LOC: M WHC 12:40
PROVIDERS: ATTEND Surgery
DX: C50.911 Malignant neoplasm of unspecified site of right female breast (principal); Z90.11 Acquired absence of right breast and nipple; Z80.3 Family history of malignant neoplasm of breast; Z80.42 Family history of malignant neoplasm of prostate
CPT/HCPCS: 77065; G0279

== ENCOUNTER → 2021-08-08 | Outpatient (REF) | payer BC ==
[~2021-08-08] MED LIST changes: -D31000TA2 PO; +VITA100093 PO
[2021-08-09 11:53] LABS: HEMATOCRIT 37.3 % (36.0-47.0); HEMOGLOBIN 12.4 g/dl (12.0-15.5); LYMPH # 2.4 10^3/uL (1.5-5.0); LYMPH % 37.9 % (24.0-44.0); MEAN CORPUSCULAR HEMOGLOBIN 30.6 pg (27.0-33.0); MEAN CORPUSCULAR HGB CONC 33.2 g/dl (32.0-36.5); MEAN CORPUSCULAR VOLUME 92.1 fl (80.0-96.0); MONO # 0.6 10^3/uL (0.0-0.8); NEUTROPHILS # 3.3 10^3/uL (1.5-8.5); NEUTROPHILS % 51.8 % (36.0-66.0); PLATELET COUNT, AUTOMATED 260 10^3/uL (150-450); RED BLOOD COUNT 4.05 10^6/uL (4.00-5.40); WHITE BLOOD COUNT 6.3 10^3/uL (4.0-10.0)
[2021-08-09 12:13] LABS: ERYTHROCYTE SEDIMENTATION RATE 14 mm/hr (0-30)
[2021-08-09 12:20] LABS: ALBUMIN 4.1 GM/DL (3.2-5.2); ALT/SGPT 33 U/L (12-78); BILIRUBIN,DIRECT 0.1 MG/DL (0.0-0.2); BILIRUBIN,TOTAL 0.3 MG/DL (0.2-1.0); BLOOD UREA NITROGEN 14 MG/DL (7-18); CREATININE FOR GFR 0.76 MG/DL (0.55-1.30); GLOMERULAR FILTRATION RATE > 60.0 (>45); TOTAL PROTEIN 7.1 GM/DL (6.4-8.2)
== END ==
LOC: M LABDRAWC 11:23
PROVIDERS: ATTEND Physician Assistant
DX: M05.89 Other rheumatoid arthritis with rheumatoid factor of multiple sites (principal); Z79.899 Other long term (current) drug therapy

== ENCOUNTER → 2022-01-25 | Outpatient (CLI) | payer MEDICARE | LOC: M CLY 09:49 | PROVIDERS: ATTEND Nurse Practitioner Family | DX: S49.91XA Unspecified injury of right shoulder and upper arm, initial encounter (principal); X58.XXXA Exposure to other specified factors, initial encounter; Y92.89 Other specified places as the place of occurrence of the external cause ==

== ENCOUNTER → 2022-01-25 | Outpatient (REF) | payer MEDICARE, BC ==
[2022-01-25 17:23] LABS: HEMOGLOBIN 12.8 g/dl (12.0-15.5); MEAN CORPUSCULAR HEMOGLOBIN 29.8 pg (27.0-33.0); PLATELET COUNT, AUTOMATED 284 10^3/uL (150-450); WHITE BLOOD COUNT 4.8 10^3/uL (4.0-10.0)
[2022-01-25 18:04] LABS: ALT/SGPT 25 U/L (12-78); BLOOD UREA NITROGEN 14 MG/DL (7-18); CALCIUM LEVEL 9.3 MG/DL (8.8-10.2); CARBON DIOXIDE LEVEL 29 MEQ/L (21-32); CHLORIDE LEVEL 105 MEQ/L (98-107); CREATININE FOR GFR 0.71 MG/DL (0.55-1.30); GLOMERULAR FILTRATION RATE > 60.0 (>45); GLUCOSE, FASTING 90 MG/DL (70-100); POTASSIUM SERUM 5.1 MEQ/L (3.5-5.1); SODIUM LEVEL 137 MEQ/L (136-145)
[2022-01-25 18:05] LABS: ALBUMIN 3.7 GM/DL (3.2-5.2); BILIRUBIN,TOTAL 0.5 MG/DL (0.2-1.0); CHOLESTEROL LEVEL 191 MG/DL (<200); CHOLESTEROL RISK RATIO 2.893 (<5); HDL CHOLESTEROL 66 MG/DL (>40); LDL CHOLESTEROL 109 MG/DL (<100); NON-HDL-C 125 MG/DL; TOTAL PROTEIN 7.7 GM/DL (6.4-8.2); TRIGLYCERIDES LEVEL 80 MG/DL (<150)
== END ==
LOC: M SFHCCLAY 09:51
PROVIDERS: ATTEND Nurse Practitioner Family
DX: M06.9 Rheumatoid arthritis, unspecified (principal); F17.211 Nicotine dependence, cigarettes, in remission; Z79.899 Other long term (current) drug therapy

== ENCOUNTER → 2022-08-01 | Outpatient (CLI) | payer MEDICARE, BC ==
[~2022-08-01] MED LIST changes: +CEQU0.09; +EFFE37.5 PO; +MELO7.5T35 PO
== END ==
LOC: M CLY 11:35
PROVIDERS: ATTEND Nurse Practitioner Family
DX: M25.572 Pain in left ankle and joints of left foot (principal); M06.9 Rheumatoid arthritis, unspecified; F17.211 Nicotine dependence, cigarettes, in remission; E55.9 Vitamin D deficiency, unspecified; E78.2 Mixed hyperlipidemia; Z98.890 Other specified postprocedural states; Z85.3 Personal history of malignant neoplasm of breast
CPT/HCPCS: 73610; G0463

== ENCOUNTER → 2022-08-08 | Outpatient (CLI) | payer MEDICARE, BC | LOC: M WHC 12:52 | PROVIDERS: ATTEND Nurse Practitioner Women's Health | DX: D05.11 Intraductal carcinoma in situ of right breast (principal); Z90.11 Acquired absence of right breast and nipple ==

== ENCOUNTER → 2022-08-08 | Outpatient (CLI) | payer MEDICARE, BC | LOC: M WHC 12:55 | PROVIDERS: ATTEND Specialist | DX: D05.11 Intraductal carcinoma in situ of right breast (principal); Z90.11 Acquired absence of right breast and nipple; Z79.811 Long term (current) use of aromatase inhibitors | CPT/HCPCS: 77065; 77080; G0279 ==

== ENCOUNTER → 2022-09-27 | Outpatient (REF) | payer MEDICARE, BC ==
[2022-09-27 11:51] LABS: BASO % 0.2 % (0.0-1.0); HEMATOCRIT 37.1 % (36.0-47.0); HEMOGLOBIN 12.2 g/dl (12.0-15.5); LYMPH # 1.8 10^3/uL (1.5-5.0); LYMPH % 30.8 % (24.0-44.0); MEAN CORPUSCULAR HEMOGLOBIN 30.7 pg (27.0-33.0); MEAN CORPUSCULAR HGB CONC 32.9 g/dl (32.0-36.5); MEAN CORPUSCULAR VOLUME 93.5 fl (80.0-96.0); MONO # 0.5 10^3/uL (0.0-0.8); MONO % 9.4 % (2.0-8.0); NEUTROPHILS # 3.4 10^3/uL (1.5-8.5); NEUTROPHILS % 59.4 % (36.0-66.0); PLATELET COUNT, AUTOMATED 299 10^3/uL (150-450); RED BLOOD COUNT 3.97 10^6/uL (4.00-5.40); WHITE BLOOD COUNT 5.7 10^3/uL (4.0-10.0)
[2022-09-27 12:00] LABS: APPEARANCE, URINE CLEAR (CLEAR); BACTERIA, URINE AUTO NEGATIVE (NEGATIVE); BILIRUBIN, URINE AUTO NEGATIVE (NEGATIVE); BLOOD, URINE BLOOD NEGATIVE (NEGATIVE); COLOR, URINE YELLOW (YELLOW); GLUCOSE, URINE (UA) AUTO NEGATIVE (NEGATIVE); KETONE, URINE AUTO TRACE mg/dL (NEGATIVE); LEUKOCYTE ESTERASE, URINE AUTO 3+ (NEGATIVE); MUCUS, URINE SMALL (NEGATIVE); NITRITE, URINE AUTO NEGATIVE (NEGATIVE); PROTEIN, URINE AUTO NEGATIVE (NEGATIVE); RBC, URINE AUTO 0 /HPF (0-3); SPECIFIC GRAVITY URINE AUTO 1.017 (1.002-1.035); SQUAMOUS EPITHELIAL CELL UR AU 3 /HPF (0-6); UROBILINOGEN, URINE AUTO 0.2 mg/dL (0.0-2.0); WBC, URINE AUTO 15 /HPF (0-3)
[2022-09-27 12:01] LABS: BLOOD UREA NITROGEN 16 MG/DL (9-23); CALCIUM LEVEL 9.2 MG/DL (8.3-10.6); CARBON DIOXIDE LEVEL 29 MMOL/L (20-31); CHLORIDE LEVEL 105 MMOL/L (98-107); CREATININE FOR GFR 0.72 MG/DL (0.55-1.30); GLOMERULAR FILTRATION RATE > 60.0 (>45); GLUCOSE, FASTING 88 MG/DL (74-106); SODIUM LEVEL 140 MMOL/L (136-145)
== END ==
LOC: M SFHCCLAY 09:04
PROVIDERS: ATTEND Nurse Practitioner Family
DX: Z01.818 Encounter for other preprocedural examination (principal); Z79.899 Other long term (current) drug therapy

== ENCOUNTER → 2023-08-13 | Outpatient (CLI) | payer MEDICARE, BC ==
[~2023-08-13] MED LIST changes: -EFFE37.5 PO; +EFFE37.52 PO; -LIDO1CRE42; +LIDO30CR18
== END ==
LOC: M WHC 12:44
PROVIDERS: ATTEND Nurse Practitioner Women's Health
DX: Z85.3 Personal history of malignant neoplasm of breast (principal); N95.0 Postmenopausal bleeding; Z90.11 Acquired absence of right breast and nipple
CPT/HCPCS: 77065; G0279

== ENCOUNTER → 2023-11-15 | Outpatient (REF) | payer MEDICARE, BC ==
[2023-11-15 14:12] LABS: HEMOGLOBIN A1c 5.2 % (4.0-6.0)
[2023-11-15 14:25] LABS: ALBUMIN 3.7 G/DL (3.2-5.2); ALKALINE PHOSPHATASE 156 U/L (46-116); ALT/SGPT 18 U/L (7.0-40); AST/SGOT 15 U/L (<34); BILIRUBIN,TOTAL 0.4 MG/DL (0.3-1.2); BLOOD UREA NITROGEN 16 MG/DL (9-23); CALCIUM LEVEL 9.2 MG/DL (8.3-10.6); CARBON DIOXIDE LEVEL 32 MMOL/L (20-31); CHLORIDE LEVEL 104 MMOL/L (98-107); CHOLESTEROL LEVEL 191 MG/DL (<200); CHOLESTEROL RISK RATIO 2.92 (<5); CREATININE FOR GFR 0.75 MG/DL (0.55-1.30); GLOMERULAR FILTRATION RATE > 60.0 (>45); GLUCOSE, FASTING 92 MG/DL (74-106); HDL CHOLESTEROL 65.4 MG/DL (>40); NON-HDL-C 125.6 MG/DL; POTASSIUM SERUM 4.7 MMOL/L (3.5-5.1); SODIUM LEVEL 139 MMOL/L (136-145); TRIGLYCERIDES LEVEL 63 MG/DL (<150)
== END ==
LOC: M SFHCCLAY 09:45
PROVIDERS: ATTEND Nurse Practitioner Family
DX: Z00.00 Encounter for general adult medical examination without abnormal findings (principal); F17.211 Nicotine dependence, cigarettes, in remission; Z90.11 Acquired absence of right breast and nipple; M06.9 Rheumatoid arthritis, unspecified; Z79.899 Other long term (current) drug therapy

== ENCOUNTER → 2025-01-28 | Outpatient (REF) | payer MEDICARE, BC ==
[2025-01-28 17:31] LABS: ALT/SGPT 22 U/L (7.0-40); AST/SGOT 22 U/L (<34); CALCIUM LEVEL 9.4 MG/DL (8.3-10.6); CARBON DIOXIDE LEVEL 30 MMOL/L (20-31); CHLORIDE LEVEL 103 MMOL/L (98-107); CHOLESTEROL LEVEL 192 MG/DL (<200); CHOLESTEROL RISK RATIO 2.63 (<5); CREATININE FOR GFR 0.72 MG/DL (0.55-1.30); GLOMERULAR FILTRATION RATE > 90.0 (>45); LDL CHOLESTEROL 102.2 MG/DL (<100); NON-HDL-C 119.2 MG/DL; POTASSIUM SERUM 4.5 MMOL/L (3.5-5.1); SODIUM LEVEL 144 MMOL/L (136-145); TRIGLYCERIDES LEVEL 85 MG/DL (<150)
[2025-01-28 18:18] LABS: ESTIMATED AVERAGE GLUCOSE 105.0 MG/DL (60-110)
== END ==
LOC: M SFHCCLAY 09:47
PROVIDERS: ATTEND Nurse Practitioner Family
DX: Z00.00 Encounter for general adult medical examination without abnormal findings (principal); F17.211 Nicotine dependence, cigarettes, in remission; Z90.11 Acquired absence of right breast and nipple; M06.9 Rheumatoid arthritis, unspecified; R35.0 Frequency of micturition